=== PATIENT | male | born 1960 | race Two or more races ===

== ENCOUNTER 2020-04-05 13:06 | Inpatient (IN) | payer MEDICAID, OTHER ==
[~2020-04-05] VITALS: Ht 165.1 cm; Wt 77.6 kg
[2020-04-05] MEDS ORDERED: SODIUM CHLORIDE 0.9% 1,000 ML IV ONE (13:39)
[2020-04-05] MEDS ORDERED: MORPHINE SULFATE 4 MG/ML CPJ (NOT FOR IM USE) IV STA (13:39)
[2020-04-05 14:00] LABS: BASOPHILS % 0.7 % (0.0-2.0); EOSINOPHILS % 1.4 % (0.0-5.0); HEMATOCRIT. 40.2 % (42.0-52.0); HEMOGLOBIN. 13.2 g/dL (14.0-18.0); LYMPHOCYTES % 17.3 % (20.0-50.0); MEAN CORPUSCULAR HEMOGLOBIN 30.3 pg (28.0-32.0); MEAN CORPUSCULAR VOLUME 92.4 fL (80.0-94.0); MEAN PLATELET VOLUME 7.8 fl (7.4-10.4); MONOCYTES % 8.5 % (2.0-8.0); NEUTROPHILS % 72.1 % (40.0-76.0); PLATELET 277 x1000/uL (130-400); RED BLOOD CELL COUNT 4.35 mill/uL (4.7-6.1); RED CELL DISTRIBUTION WIDTH 15.5 % (11.6-14.6)
[2020-04-05 14:03] LABS: CHLORIDE 108 mEq/L (98-107)
[2020-04-05] MEDS ORDERED: ASPIRIN 325MG EC TABLET PO ONE (15:45)
[2020-04-05] MEDS ORDERED: GUAIFENESIN 200MG/10ML SUGAR FREE UDC PO PRN (20:15)
[2020-04-05] MEDS ORDERED: DOCUSATE SODIUM 100MG CAPSULE PO PRN (20:15)
[2020-04-05] MEDS ORDERED: HYDRALAZINE 20MG/ML VIAL IV PRN (20:15)
[2020-04-05] MEDS ORDERED: ACETAMINOPHEN 325MG TABLET PO PRN (20:15)
[2020-04-05] MEDS ORDERED: LORAZEPAM 2MG/ML CPJ IV PRN (20:15)
[2020-04-05] MEDS ORDERED: CLONIDINE 0.1MG TABLET PO PRN (20:15)
[2020-04-05] MEDS ORDERED: IPRATROPIUM/ALBUTEROL 0.5-3(2.5)MG/3ML NEB HHN PRN (20:15)
[2020-04-05] MEDS ORDERED: DIPHENHYDRAMINE 50MG/ML VIAL IV PRN (20:15)
[2020-04-05] MEDS ORDERED: HYDROCODONE/ACETAMINOPHEN 10/325MG TABLET PO PRN (20:15)
[2020-04-05] MEDS ORDERED: ONDANSETRON HCL 4MG/2ML INJ IV PRN (20:15)
[2020-04-05] MEDS ORDERED: MAGNESIUM/ALUMINUM HYDROXIDE/SIMETHICONE 30ML UDC PO PRN (20:15)
[2020-04-05 22:55] VITALS: BP_SYST 115; BP_SYST 116; BP_DIAS 63; BP_DIAS 64
[2020-04-05] MEDS: ENOXAPARIN 40MG/0.4ML SYR SUBCUT SCH (23:34)
[2020-04-05] MEDS: SODIUM CHLORIDE 0.9% INJ 3ML FLUSH IVF SCH (23:34)
[2020-04-05 23:59] LABS: CREATINE KINASE 46 IU/L (39-308)
[2020-04-06] VITALS: BP 110/65
[2020-04-06] LABS: CREATINE KINASE MB FRACTION < 1.0 ng/mL (0.5-3.6)
[2020-04-06 04:00] VITALS: BP 108/55
[2020-04-06] MEDS: SODIUM CHLORIDE 0.9% INJ 3ML FLUSH IVF SCH ×3 (05:27→21:33)
[2020-04-06 07:32] LABS: BASOPHILS % 0.6 % (0.0-2.0); EOSINOPHILS % 1.1 % (0.0-5.0); HEMATOCRIT. 40.5 % (42.0-52.0); HEMOGLOBIN. 13.3 g/dL (14.0-18.0); LYMPHOCYTES % 20.8 % (20.0-50.0); MEAN CORPUSCULAR HEMOGLOBIN 30.2 pg (28.0-32.0); MEAN CORPUSCULAR VOLUME 92.2 fL (80.0-94.0); MEAN PLATELET VOLUME 7.9 fl (7.4-10.4); MONOCYTES % 10.2 % (2.0-8.0); NEUTROPHILS % 67.3 % (40.0-76.0); PLATELET 224 x1000/uL (130-400); RED BLOOD CELL COUNT 4.39 mill/uL (4.7-6.1); RED CELL DISTRIBUTION WIDTH 15.3 % (11.6-14.6)
[2020-04-06 07:46] LABS: CHLORIDE 105 mEq/L (98-107)
[2020-04-06 07:55] LABS: CREATINE KINASE 40 IU/L (39-308)
[2020-04-06 07:58] LABS: CREATINE KINASE MB FRACTION < 1.0 ng/mL (0.5-3.6)
[2020-04-06 08:00] VITALS: BP 119/67
[2020-04-06] MEDS: ASPIRIN 81MG EC TABLET PO SCH (09:22)
[2020-04-06 10:50] LABS: T4 FREE 0.82 ng/dL (0.76-1.46)
[2020-04-06 12:00] VITALS: BP 102/52
[2020-04-06] MEDS: MORPHINE SULFATE 2 MG/ML CPJ (NOT FOR IM USE) IV PRN ×2 (14:30→22:49)
[2020-04-06 16:00] VITALS: BP 121/67
[2020-04-06 16:01] LABS: *BARBITURATES SCREEN URINE NEGATIVE (NEGATIVE); *BENZODIAZEPINES SCREEN URINE NEGATIVE (NEGATIVE); *COCAINE SCREEN URINE NEGATIVE (NEGATIVE)
[2020-04-06 16:02] LABS: *AMPHETAMINES SCREEN URINE NEGATIVE (NEGATIVE); METHADONE URINE SCREEN NEGATIVE (NEGATIVE)
[2020-04-06 16:03] LABS: CANNABINOID URINE SCREEN PRESUMTIVE POSITIVE (NEGATIVE); OPIATES URINE SCREEN NEGATIVE (NEGATIVE); PHENCYCLIDINE URINE SCREEN NEGATIVE (NEGATIVE)
[2020-04-06 16:52] LABS: CREATINE KINASE 41 IU/L (39-308)
[2020-04-06 16:54] LABS: CREATINE KINASE MB FRACTION < 1.0 ng/mL (0.5-3.6)
[2020-04-06] MEDS ORDERED: REGADENOSON 0.4 MG/5 ML IV SCH (17:00)
[2020-04-06 20:00] VITALS: BP 113/58
[2020-04-06] MEDS: ENOXAPARIN 40MG/0.4ML SYR SUBCUT SCH (21:33)
[2020-04-07] VITALS: BP 128/60
[2020-04-07 00:07] LABS: CREATINE KINASE 40 IU/L (39-308)
[2020-04-07 00:09] LABS: CREATINE KINASE MB FRACTION < 1.0 ng/mL (0.5-3.6)
[2020-04-07 04:00] VITALS: BP 111/53
[2020-04-07 06:18] LABS: CREATINE KINASE 36 IU/L (39-308)
[2020-04-07 06:20] LABS: CREATINE KINASE MB FRACTION < 1.0 ng/mL (0.5-3.6)
[2020-04-07] MEDS: SODIUM CHLORIDE 0.9% INJ 3ML FLUSH IVF SCH (07:05)
[2020-04-07 08:00] VITALS: BP 123/74
[2020-04-07] MEDS ORDERED: REGADENOSON 0.4 MG/5 ML IV ONE (08:04)
[2020-04-07] MEDS: ASPIRIN 81MG EC TABLET PO SCH (10:12)
[2020-04-07 12:00] VITALS: BP 105/78
[2020-04-07 12:59] VITALS: BP 105/87
== END 2020-04-07 13:35 | disposition home or self-care (01) | DRG 203 ==
LOC: ER 13:06 → 8WST 16:48 → EDBEDREQTM 16:49 → EDBEDREQ 16:49 → ENRESERV 21:36 → 8WST 04-06 00:11
PROVIDERS: ADMIT Internal Medicine; ATTEND Internal Medicine
DX: M94.0 Chondrocostal junction syndrome [Tietze] (principal); I10 Essential (primary) hypertension; J44.9 Chronic obstructive pulmonary disease, unspecified; F17.200 Nicotine dependence, unspecified, uncomplicated; Z82.49 Family history of ischemic heart disease and other diseases of the circulatory system; Z71.6 Tobacco abuse counseling
CPT/HCPCS: 36415; 71045; 78452; 80053; 80061; 80305; 82550; 82553; 83036; 83880; 84439; 84443; 84484; 85025; 85379; 93005; 93017; 93306; 93970; 99285; A9500; J1200; J1650; J2270; J2785; J7030